=== PATIENT | female | born 1985 | race Asian ===

== ENCOUNTER 2024-01-03 19:42 | Emergency (ER) | payer MEDICAID, SELFPAY ==
[2024-01-03 20:15] VITALS: BP 118/76; PULSE 96; RESP 18; TEMP 36.9; O2SAT 100; BMI 31.2
--- NOTE | 2024-01-03 20:19 | ED.GENADULT ---
HPI - General Adult General Chief complaint: Upper Respiratory Symptoms Stated complaint: cough Time Seen by Provider: 01/04/24 00:54 Source: patient Limitations: no limitations History of Present Illness ED Provider: Solange krueger PA-C HPI narrative: 38-year-old female with a history of asthma presents with viral syndrome x2 days. Associated sorethroat, nasal congestion, dry spasm like cough with wheezing at times. Denies fevers. Denies productive cough, shortness of breath or chest pain. Patient child the sick with the same symptoms. Related Data Previous Rx's ?Medication ?Instructions ?Recorded albuterol sulfate 90 mcg/actuation 2 puff inhalation Q4-6H PRN 01/04/24 aerosol inhaler shortness of breath or wheezing 7 days #6.7 grams prednisone 20 mg tablet 40 mg (2 x 20 mg) PO DAILY #8 tabs 01/04/24 Allergies Allergy/AdvReac Type Severity Reaction Status Date / Time No Known Allergies Allergy Verified 01/03/24 20:16 Review of Systems Review of Systems: Yes all other systems are reviewed and are negative Constitutional: Constitutional: Denies fever(s) ENT: Reports nasal congestion, Reports nasal discharge and Reports sore throat Cardiovascular: Cardiovascular: Denies chest pain and Denies dyspnea Respiratory: Respiratory: Reports cough, Denies dyspnea and Reports wheezing Allergic/Immunologic: Allergic/Immunologic: Reports wheezing PMFSH Past Medical History Attestation statement: The following information was validated with the patient. Social History Social History Alcohol intake: never Smoked in Last 30 Days: No Use of substances other than those prescribed or required for medical reasons: No Advance Directives: No Advance Directives Information Provided: Yes Patient : No Physical Exam ED Vital Signs: Vital Signs - 24 hr 01/03/24 20:15 01/04/24 00:11 01/04/24 02:06 Temperature 98.4 F 98.4 F 98.4 F Pulse Rate 96 104 H 104 H Respiratory Rate 18 18 18 Blood Pressure 118/76 113/80 113/80 Pulse Oximetry 100 97 97 Oxygen Delivery Method Room Air Room Air Room Air BMI result Body Mass Index 31.2 Const Other: Alert well in appearance Orientation/consciousness: patient oriented x3 Resp Other: Nonlabored respirations, lungs are clear to auscultation, active bronchospasm cough Cardio Other: Normal peripheral perfusion Skin Other: Warm dry no rash Neuro General: patient oriented x3, no focal motor deficits and CN's II-XI intact bilaterally Psych Other: Calm cooperative Course Course Course Narrative: RME: [employer] by COLE[employer]. [age] year female presents to ED for URI symptoms cough x3 days. Daughter has similar symptoms. Patient denies any chest pain or shortness of breath, strep SARs ordered. Medical Decision Making Medical Decision Making [facility] Narrative: 38-year-old female with a history of asthma presents with viral syndrome x2 days. Associated sorethroat, nasal congestion, dry spasm like cough with wheezing at times. Denies fevers. Denies productive cough, shortness of breath or chest pain. Patient child the sick with the same symptoms. Problem: Asthma History: Per patient I have considered the following differential diagnoses: Asthma exacerbation, viral syndrome, pneumonia, bronchitis Plan: Patient was screened for viral illness and strep out in triage, it was negative. The patient has a mild asthma exacerbation in the setting of viral syndrome, we will send with an inhaler and a steroid taper. I do not feel she needs to stay for a chest x-ray, she does not have a productive cough, she is afebrile, her lungs are clear, pneumonia less likely. I have independently reviewed the following tests: Labs: Flu, RSV and COVID swab negative, strep swab negative Lab Data Labs: Lab Results 01/03/24 01/03/24 Range/Units 20:22 21:45 Influenza Type A (PCR) NEGATIVE (Negative) Influenza Type B (PCR) NEGATIVE (Negative) RSV RNA Qual (PCR) NEGATIVE (Negative) SARS-CoV-2 RNA (RT-PCR) NEGATIVE (Negative) S. pyogenes GrpA FANTA Negative (Negative) Discharge Plan Discharge Clinical Impression: Acute viral syndrome, Asthma exacerbation Patient Disposition: Home, Self-Care Instructions: Viral Syndrome (ED) Additional Instructions: You were screened for RSV, influenza and COVID, the viral panel was negative. They also tested you for strep throat, that was negative as well. You have a virus causing your mild asthma exacerbation. See home care instructions. Use your inhaler as needed for bronchospasms type cough and wheezing. Use the steroid taper as directed, take this medication in the morning. Follow up with your doctor as needed. Prescriptions: New albuterol sulfate 90 mcg/actuation HFA aerosol inhaler 2 puff inhalation Q4-6H PRN (Reason: shortness of breath or wheezing) 7 Days Qty: 6.7 0RF prednisone 20 mg tablet 40 mg PO DAILY Qty: 8 0RF Interventions: ED Discharge Assessment Last Done: 01/04/24 02:06 Discharge Date/Time: 01/04/24 02:06 Print Language: Thai
[2024-01-03 20:36] LABS: IDNOW Serial# 6674DD1D; Strep A Nucleic Acid Negative (Negative)
[2024-01-03 22:25] LABS: Influenza A PCR NEGATIVE (Negative); Influenza B PCR NEGATIVE (Negative); Resp Syncy Virus RNA Qual PCR NEGATIVE (Negative); SARS COV2 PCR INHOUSE NEGATIVE (Negative)
[2024-01-04 00:11] VITALS: BP 113/80; PULSE 104; RESP 18; TEMP 36.9; O2SAT 97
[2024-01-04 02:06] VITALS: BP 113/80; PULSE 104; RESP 18; TEMP 36.9; O2SAT 97
== END 2024-01-04 02:06 | disposition home or self-care (01) ==
PROVIDERS: Physician Assistant; Emergency Provider Emergency Medicine
DX: B34.9 Viral infection, unspecified (principal); J45.901 Unspecified asthma with (acute) exacerbation; R05.9 Cough, unspecified; J02.9 Acute pharyngitis, unspecified; Z03.818 Encounter for observation for suspected exposure to other biological agents ruled out
CPT/HCPCS: 0241U; 87651; 99283; 99284

== ENCOUNTER → 2024-02-04 08:12 | Outpatient (BNV) | payer MEDICAID, SELFPAY | PROVIDERS: Emergency Provider Emergency Medicine; Visit Provider Internal Medicine Cardiovascular Disease | DX: R94.31 Abnormal electrocardiogram [ECG] [EKG] (principal) | CPT/HCPCS: 93010 ==

== ENCOUNTER 2024-02-04 08:13 | Emergency (ER) | payer MEDICAID, SELFPAY ==
--- NOTE | 2024-02-04 | ECG_ITS ---
Test Reason : CP Blood Pressure : / mmHG Vent. Rate : 094 BPM Atrial Rate : 094 BPM P-R Int : 128 ms QRS Dur : 076 ms QT Int : 324 ms P-R-T Axes : 044 022 015 degrees QTc Int : 405 ms Normal sinus rhythm Nonspecific T wave abnormality Abnormal ECG No previous ECGs available Referred By: Generic ED Physician Electronically Signed By:DOE GONZALEZ MD
--- NOTE | ~2024-02-04 | XR_ITS ---
EXAMINATION: XR CHEST CLINICAL INFORMATION: Chest pain COMPARISON: None available. TECHNIQUE: 2 views of the chest were obtained. FINDINGS: No significant abnormality is noted involving the heart, lungs, mediastinum, bony thorax or soft tissues. XR/XR chest 2V IMPRESSION: Unremarkable examination. Electronically signed by: Rylee Roberts MD 02/04/2024 09:00 AM [facility]
[2024-02-04 08:17] VITALS: BP 132/78; PULSE 98; RESP 22; TEMP 36.9; O2SAT 100; BMI 30.5
--- NOTE | 2024-02-04 08:33 | ED_ITS ---
HPI - Chest Pain General Chief Complaint: Chest Pain Stated Complaint: cp-vomiting Time Seen by Provider: 02/04/24 08:27 Source: patient, RN notes reviewed and old records reviewed Mode of arrival: ambulatory History of Present Illness ED Provider: Jessica Villanueva PA-C HPI narrative: 38-year-old female with a past medical history of asthma presenting to the ED complaining of substernal chest pressure/heaviness beginning last night with associated nausea and emesis x3. Reports pain worsened this morning. Took Pepcid with some relief last night. Denies fever, chills, diarrhea/constipation, SOB, hematemesis, dysuria/hematuria. Related Data Previous Rx's ?Medication ?Instructions ?Recorded albuterol sulfate 90 mcg/actuation 2 puff inhalation Q4-6H PRN 01/04/24 aerosol inhaler shortness of breath or wheezing 7 days #6.7 grams prednisone 20 mg tablet 40 mg (2 x 20 mg) PO DAILY #8 tabs 01/04/24 aluminum-mag hydroxide-simethicone 5 ml PO 5XD PRN dyspepsia #30 mL 02/04/24 200 mg-200 mg-20 mg/5 mL oral susp (Maalox Advanced) famotidine 20 mg tablet (Pepcid) 20 mg PO DAILY #14 tabs 02/04/24 Allergies Allergy/AdvReac Type Severity Reaction Status Date / Time No Known Allergies Allergy Verified 02/04/24 08:18 Review of Systems 2 Review of Systems: Yes all other systems are reviewed and are negative Constitutional: Constitutional: Reports as per [facility] Past Medical History Attestation statement: The following information was validated with the patient. Source: old records reviewed Social History Social History Alcohol intake: never Advance Directives: No Advance Directives Information Provided: No Physical Exam 2 Vital Signs: Vital Signs: Last Vital Signs Temp 97 F 02/04/24 13:52 Pulse 76 02/04/24 13:52 Resp 16 02/04/24 13:52 BP 113/67 02/04/24 13:52 Pulse Ox 98 02/04/24 13:52 O2 Del Method Room Air 02/04/24 13:52 BMI result Body Mass Index 30.5 Const: General: cooperative, healthy appearing and no acute distress O rientation/consciousness: patient oriented x3 Limitations: no limitations HEENT: Head: Yes normal to inspection and Yes atraumatic Ears: hearing grossly normal bilaterally General nose exam: Normal external nose present Face and sinus: Yes normal facial exam Eyes: General: appearance normal, both eyes and all related structures EOM: EOMs intact bilaterally Neck: Neck: Yes normal visual inspection and Yes no meningeal signs Chest: Chest palpation & inspection: normal inspection of the chest, no crepitus and no tenderness Resp: Effort & Inspection: normal respiratory effort and no respiratory distress Auscultation: clear to auscultation bilaterally, no crackles and no wheezes Cardio: Rate: regular rate Heart sounds: S1 normal heart sound present and S2 normal heart sound present GI: Inspection: Yes normal to inspection Palpation (GI): Soft to palpation, nontender, no guarding and not rigid : General: Yes no CVA tenderness Back/Spine/Pelvis: Back: no CVA tenderness Skin: Rashes: no rashes Wounds: no wounds Neuro: General: patient oriented x3, tone normal and no meningeal signs C ranial nerves: Yes CN's II-XII intact bilaterally Gait exam (Neuro): Normal gait present Extrem: General: Yes normal to inspection and Yes no pedal edema Course Course Course Narrative: -1242-leukocytosis of 13.5. Initial troponin negative > will obtain 3 hour repeat. Labs otherwise reassuring -viral studies negative XR chest 2V IMPRESSION: Unremarkable examination. > on re-evaluation patient reports mild symptomatic improvement. Does report continued chest discomfort. We will give IV Toradol and re-evaluate -repeat troponin without delta, [place] unlikely > on repeat eval patient reports symptomatic improvement. Tolerating p.o. Results discussed with patient including worrisome signs and symptoms and strict return precautions, and when to return to the emergency department. They verbalized understanding and feel safe for discharge at this time. Medications Administered Discontinued Medications Generic Name Dose Route Start Last Admin Trade Name Freq PRN Reason Stop Dose Admin Al Hydroxide/Mg Hydroxide 30 ml 02/04/24 08:32 02/04/24 09:32 Magnesium Hydrox/Alum Hydrox 30 Ml Oral.Susp PO 02/04/24 08:33 30 ml ONCE ONE Administration Famotidine 20 mg 02/04/24 08:32 02/04/24 09:31 Famotidine/Pf 20 Mg/2 Ml Vial IVPUSH 02/04/24 08:33 20 mg ONCE ONE Administration Ketorolac Tromethamine 15 mg 02/04/24 12:42 02/04/24 12:47 Ketorolac Tromethamine 15 Mg/Ml Vial IVPUSH 02/04/24 12:43 15 mg ONCE ONE Administration Medical Decision Making Medical Decision Making MDM Narrative: 38-year-old female with a past medical history of asthma presenting to the ED complaining of substernal chest pressure/heaviness beginning last night with associated nausea and emesis x3. On exam tachypneic, appears uncomfortable, lungs CTA, abdomen soft/nontender. Concern for GERD vs gastritis vs PUD vs ACS. Lower suspicion for PTX, pneumonia, CHF, DVT/PE. Unlikely cholecystitis/lithiasis, pancreatitis, or appendicitis/diverticulitis without tenderness Plan: EKG, labs, UA, CXR, viral studies, Pepcid/Maalox, re-evaluate Please refer to course for remaining clinical decision making, interpretation of labs/imaging results, and discussions with consultants and/or family members. Differential Diagnosis Differential Diagnoses: The differential diagnosis associated with the presentation includes As above Admission/Observation Consideration of admission/observation: Escalation of care including admission/observation considered Lab Data [facility] Lab Attestation statement: I reviewed the patient's lab results. 02/04/24 09:27 02/04/24 09:27 Labs: Lab Results 02/04/24 02/04/24 02/04/24 Range/Units 09:27 09:27 09:27 WBC 13.5 H (4.8-10.8) X10*3/uL RBC 4.30 (4.20-5.50) X10*6/uL Hgb 12.7 (12.0-16.0) g/dl Hct 36.7 L (37.0-47.0) % MCV 85.3 (80.0-98.0) fL MCH 29.5 (27.0-33.0) pg MCHC 34.6 (31.0-35.0) g/dl RDW 12.7 (11.0-16.0) % Plt Count 346 (160-400) X10*3/uL MPV 8.5 L (9.4-12.3) fL Immature Gran % (Auto) 0.3 (0.0-0.4) % Neut % (Auto) 88.2 H (45-73) % Lymph % (Auto) 8.6 L (20-40) % [place]arr[place] % (Auto) 2.7 (2-11) % Eos % (Auto) 0.0 (0-4) % Baso % (Auto) 0.2 (0-2) % Lymph # (Auto) 1.2 (1.2-4.9) X10*3/uL [place] # (Auto) 0.4 (0.1-1.2) X10*3/uL Eos # (Auto) 0.0 (0.0-0.4) X10*3/uL Baso # (Auto) 0.0 (0.0-0.2) X10*3/uL Abs Immat Gran (auto) 0.04 H (0.00-0.03) X10*3/uL Absolute Neuts (auto) 11.9 H (2.0-8.3) x10*3/uL Absolute Nucleated RBC 0.000 (0.0-0.012) X10*3/uL Nucleated RBC % (auto) 0.0 (0.0-0.2) /100WBC Sodium 139 (135-145) mmol/L Potassium 3.5 (3.3-5.1) mmol/L Chloride 104 (96-108) mmol/L Carbon Dioxide 24 (22-29) mmol/L Anion Gap 15 (12-20) BUN 11 (9-16) mg/dL Creatinine 0.67 (0.5-1.4) mg/dL Estim Creat Clear Calc 103.2 Estimated GFR > 60 Random Glucose 116 H (60-115) mg/dL Calcium 9.7 (8.4-10.2) mg/dL Magnesium 1.8 (1.6-2.6) mg/dL Total Bilirubin 0.6 0.6 (0.0-1.0) mg/dL Direct Bilirubin 0.2 (0.0-0.5) mg/dL AST 24 21 (5-31) U/L ALT 14 (0-31) U/L Alkaline Phosphatase (39-117) U/L Troponin I High Sens (<3.5-17.0) ng/L Total Protein (6.5-8.0) g/dL Albumin (3.5-5.0) g/dL Urine Color Urine Appearance Urine pH (5.0-9.0) Ur Specific [place] (1.005-1.025) Urine Protein (Neg-Trace) mg/dL Urine Glucose (UA) (Negative) mg/dL Urine Ketones (Negative) mg/dL Urine Blood (Negative) Urine Nitrite (Negative) Ur Leukocyte Esterase (Negative) Urine Test (NEGATIVE) Influenza Type A (PCR) (Negative) Influenza Type B (PCR) (Negative) RSV RNA Qual (PCR) (Negative) SARS-CoV-2 RNA (RT-PCR) (Negative) 02/04/24 02/04/24 02/04/24 Range/Units 09:27 09:27 09:27 WBC (4.8-10.8) X10*3/uL RBC (4.20-5.50) X10*6/uL Hgb (12.0-16.0) g/dl Hct (37.0-47.0) % MCV (80.0-98.0) fL MCH (27.0-33.0) pg MCHC (31.0-35.0) g/dl RDW (11.0-16.0) % Plt Count (160-400) X10*3/uL MPV (9.4-12.3) fL Immature Gran % (Auto) (0.0-0.4) % Neut % (Auto) (45-73) % Lymph % (Auto) (20-40) % Garrard % (Auto) (2-11) % Eos % (Auto) (0-4) % Baso % (Auto) (0-2) % Lymph # (Auto) (1.2-4.9) X10*3/uL [place]arr[place] # (Auto) (0.1-1.2) X10*3/uL Eos # (Auto) (0.0-0.4) X10*3/uL Baso # (Auto) (0.0-0.2) X10*3/uL Abs Immat Gran (auto) (0.00-0.03) X10*3/uL Absolute Neuts (auto) (2.0-8.3) x10*3/uL Absolute Nucleated RBC (0.0-0.012) X10*3/uL Nucleated RBC % (auto) (0.0-0.2) /100WBC Sodium (135-145) mmol/L Potassium (3.3-5.1) mmol/L Chloride (96-108) mmol/L Carbon Dioxide (22-29) mmol/L Anion Gap (12-20) BUN (9-16) mg/dL Creatinine (0.5-1.4) mg/dL Estim Creat Clear Calc Estimated GFR Random Glucose (60-115) mg/dL Calcium (8.4-10.2) mg/dL Magnesium (1.6-2.6) mg/dL Total Bilirubin (0.0-1.0) mg/dL Direct Bilirubin (0.0-0.5) mg/dL AST (5-31) U/L ALT 15 (0-31) U/L Alkaline Phosphatase 55 56 (39-117) U/L Troponin I High Sens < 2.7 (<3.5-17.0) ng/L Total Protein 7.8 7.8 (6.5-8.0) g/dL Albumin 4.5 (3.5-5.0) g/dL Urine Color Urine Appearance Urine pH (5.0-9.0) Ur Specific [place] (1.005-1.025) Urine Protein (Neg-Trace) mg/dL Urine Glucose (UA) (Negative) mg/dL Urine Ketones (Negative) mg/dL Urine Blood (Negative) Urine Nitrite (Negative) Ur Leukocyte Esterase (Negative) Urine Test (NEGATIVE) Influenza Type A (PCR) (Negative) Influenza Type B (PCR) (Negative) RSV RNA Qual (PCR) (Negative) SARS-CoV-2 RNA (RT-PCR) (Negative) 02/04/24 02/04/24 02/04/24 Range/Units 09:27 09:35 12:17 WBC (4.8-10.8) X10*3/uL RBC (4.20-5.50) X10*6/uL Hgb (12.0-16.0) g/dl Hct (37.0-47.0) % MCV (80.0-98.0) fL MCH (27.0-33.0) pg MCHC (31.0-35.0) g/dl RDW (11.0-16.0) % Plt Count (160-400) X10*3/uL MPV (9.4-12.3) fL Immature Gran % (Auto) (0.0-0.4) % Neut % (Auto) (45-73) % Lymph % (Auto) (20-40) % Garrard % (Auto) (2-11) % Eos % (Auto) (0-4) % Baso % (Auto) (0-2) % Lymph # (Auto) (1.2-4.9) X10*3/uL [place] # (Auto) (0.1-1.2) X10*3/uL Eos # (Auto) (0.0-0.4) X10*3/uL Baso # (Auto) (0.0-0.2) X10*3/uL Abs Immat Gran (auto) (0.00-0.03) X10*3/uL Absolute Neuts (auto) (2.0-8.3) x10*3/uL Absolute Nucleated RBC (0.0-0.012) X10*3/uL Nucleated RBC % (auto) (0.0-0.2) /100WBC Sodium (135-145) mmol/L Potassium (3.3-5.1) mmol/L Chloride (96-108) mmol/L Carbon Dioxide (22-29) mmol/L Anion Gap (12-20) BUN (9-16) mg/dL Creatinine (0.5-1.4) mg/dL Estim Creat Clear Calc Estimated GFR Random Glucose (60-115) mg/dL Calcium (8.4-10.2) mg/dL Magnesium (1.6-2.6) mg/dL Total Bilirubin (0.0-1.0) mg/dL Direct Bilirubin (0.0-0.5) mg/dL AST (5-31) U/L ALT (0-31) U/L Alkaline Phosphatase (39-117) U/L Troponin I High Sens < 2.7 (<3.5-17.0) ng/L Total Protein (6.5-8.0) g/dL Albumin 4.5 (3.5-5.0) g/dL Urine Color Urine Appearance Urine pH (5.0-9.0) Ur Specific [place] (1.005-1.025) Urine Protein (Neg-Trace) mg/dL Urine Glucose (UA) (Negative) mg/dL Urine Ketones (Negative) mg/dL Urine Blood (Negative) Urine Nitrite (Negative) Ur Leukocyte Esterase (Negative) Urine Test (NEGATIVE) Influenza Type A (PCR) NEGATIVE (Negative) Influenza Type B (PCR) NEGATIVE (Negative) RSV RNA Qual (PCR) NEGATIVE (Negative) SARS-CoV-2 RNA (RT-PCR) NEGATIVE (Negative) 02/04/24 Range/Units 13:39 WBC (4.8-10.8) X10*3/uL RBC (4.20-5.50) X10*6/uL Hgb (12.0-16.0) g/dl Hct (37.0-47.0) % MCV (80.0-98.0) fL MCH (27.0-33.0) pg MCHC (31.0-35.0) g/dl RDW (11.0-16.0) % Plt Count (160-400) X10*3/uL MPV (9.4-12.3) fL Immature Gran % (Auto) (0.0-0.4) % Neut % (Auto) (45-73) % Lymph % (Auto) (20-40) % [place] % (Auto) (2-11) % Eos % (Auto) (0-4) % Baso % (Auto) (0-2) % Lymph # (Auto) (1.2-4.9) X10*3/uL [place] # (Auto) (0.1-1.2) X10*3/uL Eos # (Auto) (0.0-0.4) X10*3/uL Baso # (Auto) (0.0-0.2) X10*3/uL Abs Immat Gran (auto) (0.00-0.03) X10*3/uL Absolute Neuts (auto) (2.0-8.3) x10*3/uL Absolute Nucleated RBC (0.0-0.012) X10*3/uL Nucleated RBC % (auto) (0.0-0.2) /100WBC Sodium (135-145) mmol/L Potassium (3.3-5.1) mmol/L Chloride (96-108) mmol/L Carbon Dioxide (22-29) mmol/L Anion Gap (12-20) BUN (9-16) mg/dL Creatinine (0.5-1.4) mg/dL Estim Creat Clear Calc Estimated GFR Random Glucose (60-115) mg/dL Calcium (8.4-10.2) mg/dL Magnesium (1.6-2.6) mg/dL Total Bilirubin (0.0-1.0) mg/dL Direct Bilirubin (0.0-0.5) mg/dL AST (5-31) U/L ALT (0-31) U/L Alkaline Phosphatase (39-117) U/L Troponin I High Sens (<3.5-17.0) ng/L Total Protein (6.5-8.0) g/dL Albumin (3.5-5.0) g/dL Urine Color Yellow Urine Appearance Clear Urine pH 8.5 (5.0-9.0) Ur Specific [place] 1.025 (1.005-1.025) Urine Protein Trace (Neg-Trace) mg/dL Urine Glucose (UA) Negative (Negative) mg/dL Urine Ketones Trace (Negative) mg/dL Urine Blood Negative (Negative) Urine Nitrite Negative (Negative) Ur Leukocyte Esterase Negative (Negative) Urine Test NEGATIVE (NEGATIVE) Influenza Type A (PCR) (Negative) Influenza Type B (PCR) (Negative) RSV RNA Qual (PCR) (Negative) SARS-CoV-2 RNA (RT-PCR) (Negative) Radiology Impression Discussion of test interpretation with radiology: I have reviewed the radiologist's reading. External Record Review External record reviewed: Inpatient record, Office record, Outpatient record, Prior outpatient labs, Prior outpatient radiology, Primary care record and Outside ED record Tests considered The following testing was considered but not selected: As above Prescription Management I considered prescription management with: Pain Medication Chronic Conditions Patient?s care impacted by: Other (asthma) Social Determinants Patient?s care significantly limited by Social Determinants of Health including: Other Social Determinant of Health Discharge Plan Discharge Clinical Impression: Atypical chest pain Patient Disposition: Home, Self-Care Instructions: Noncardiac Chest Pain (ED) Additional Instructions: Your blood work is reassuring Maalox and Pepcid will help with acid reduction/stomach discomfort Please follow-up with gastroenterology as well as Cardiology and your doctor If symptoms persist or worsen, you are unable to eat or drink have persistent chest pain or shortness of breath return to the ED Prescriptions: New famotidine [Pepcid] 20 mg tablet 20 mg PO DAILY Qty: 14 0RF alum-mag hydroxide-simeth [Maalox Advanced] 200-200-20 mg/5 mL suspension 5 ml PO 5XD PRN (Reason: dyspepsia) Qty: 30 0RF Rx Instructions: administer between meals and at bedtime No Action albuterol sulfate 90 mcg/actuation HFA aerosol inhaler 2 puff inhalation Q4-6H PRN (Reason: shortness of breath or wheezing) 7 Days Qty: 6.7 0RF prednisone 20 mg tablet 40 mg PO DAILY Qty: 8 0RF Referrals: [facility] [Provider Group] [facility] [Provider Group] Discharge Date/Time: 02/04/24 14:23 Print Language: Slovenian
[2024-02-04] MEDS: Famotidine/PF 20 MG/2 ML VIAL IVPUSH (09:31)
[2024-02-04] MEDS: Magnesium Hydrox/Alum Hydrox 30 ML ORAL.SUSP PO (09:32)
[2024-02-04 09:35] LABS: MANUAL DIFF FLAG NO
[2024-02-04 09:39] LABS: Basophils Percent Auto 0.2 % (0-2); Hematocrit 36.7 % (37.0-47.0); Hemoglobin 12.7 g/dl (12.0-16.0); Imm Gran Abs Auto 0.04 X10*3/uL (0.00-0.03); Imm Gran Pct Auto 0.3 % (0.0-0.4); Lymphocytes Absolute Auto 1.2 X10*3/uL (1.2-4.9); Lymphocytes Percent Auto 8.6 % (20-40); Mean Corpuscular HGB Conc 34.6 g/dl (31.0-35.0); Mean Corpuscular Hemoglobin 29.5 pg (27.0-33.0); Mean Corpuscular Volume 85.3 fL (80.0-98.0); Mean Platelet Volume 8.5 fL (9.4-12.3); Monocytes Absolute Auto 0.4 X10*3/uL (0.1-1.2); Monocytes Percent Auto 2.7 % (2-11); Neutrophils Absolute Auto 11.9 x10*3/uL (2.0-8.3); Neutrophils Percent Auto 88.2 % (45-73); Platelet Count 346 X10*3/uL (160-400); Red Cell Distribution Width 12.7 % (11.0-16.0); White Blood Count 13.5 X10*3/uL (4.8-10.8)
[2024-02-04 09:51] LABS: Alanine Aminotransferase 15 U/L (0-31); Albumin Level 4.5 g/dL (3.5-5.0); Alkaline Phosphatase 56 U/L (39-117); Aspartate Amino Transferase 21 U/L (5-31); Bilirubin Direct 0.2 mg/dL (0.0-0.5); Bilirubin Total 0.6 mg/dL (0.0-1.0); Magnesium 1.8 mg/dL (1.6-2.6); Total Protein 7.8 g/dL (6.5-8.0)
[2024-02-04 09:52] LABS: Alanine Aminotransferase 14 U/L (0-31); Albumin Level 4.5 g/dL (3.5-5.0); Alkaline Phosphatase 55 U/L (39-117); Anion Gap 15 (12-20); Aspartate Amino Transferase 24 U/L (5-31); Bilirubin Total 0.6 mg/dL (0.0-1.0); Blood Urea Nitrogen 11 mg/dL (9-16); Calcium 9.7 mg/dL (8.4-10.2); Carbon Dioxide 24 mmol/L (22-29); Chloride 104 mmol/L (96-108); Creatinine Clr Calc Pharmacy 103.2; Estimated Glomerular Filt Rate > 60; Glucose Random 116 mg/dL (60-115); Potassium 3.5 mmol/L (3.3-5.1); Sodium 139 mmol/L (135-145); Total Protein 7.8 g/dL (6.5-8.0)
[2024-02-04 10:01] LABS: Troponin-I High Sensitivity < 2.7 ng/L (<3.5-17.0)
[2024-02-04 10:42] LABS: Influenza A PCR NEGATIVE (Negative); Influenza B PCR NEGATIVE (Negative); Resp Syncy Virus RNA Qual PCR NEGATIVE (Negative); SARS COV2 PCR INHOUSE NEGATIVE (Negative)
--- NOTE | 2024-02-04 11:17 | PC.NURSE ---
patient states relief with medication
[2024-02-04 12:19] VITALS: BP 113/70; PULSE 79; RESP 16; TEMP 36.8; O2SAT 98
[2024-02-04 12:42] LABS: Troponin-I High Sensitivity < 2.7 ng/L (<3.5-17.0)
[2024-02-04] MEDS: Ketorolac Tromethamine 15 MG/ML VIAL IVPUSH (12:47)
--- NOTE | 2024-02-04 13:20 | PC.NURSE ---
patient tolerating po given crackers and water
[2024-02-04 13:49] LABS: Appearance Urine Clear; Color Urine Yellow; Glucose Urine UA Negative (Negative); Leukocyte Esterase Urine Negative (Negative); Nitrite Urine Negative (Negative); PH 8.5 (5.0-9.0); Specific Gravity - Urine 1.025 (1.005-1.025); Urine Blood Negative (Negative); Urine Ketones Trace mg/dL (Negative); Urine Protein Trace mg/dL (Neg-Trace)
[2024-02-04 13:50] LABS: UPreg QC Valid YES; Urine Pregnancy NEGATIVE (NEGATIVE)
[2024-02-04 13:52] VITALS: BP 113/67; PULSE 76; RESP 16; TEMP 36.1; O2SAT 98
== END 2024-02-04 14:23 | disposition home or self-care (01) ==
PROVIDERS: Physician Assistant; Emergency Provider Emergency Medicine
DX: R07.89 Other chest pain (principal); R11.2 Nausea with vomiting, unspecified; Z79.899 Other long term (current) drug therapy; Z03.818 Encounter for observation for suspected exposure to other biological agents ruled out
CPT/HCPCS: 0241U; 36415; 71046; 80053; 80076; 81003; 81025; 82248; 83735; 84484; 85025; 93005; 96374; 96375; 99284; J1885

== ENCOUNTER 2024-05-01 09:10 | Emergency (ER) | payer MEDICAID, SELFPAY ==
[2024-05-01 09:52] VITALS: BP 115/70; PULSE 75; RESP 16; TEMP 36.9; O2SAT 100; BMI 30.5
[2024-05-01 10:17] LABS: IDNOW Serial# 08D9AD1C; Strep A Nucleic Acid Negative (Negative)
[2024-05-01 10:46] LABS: Influenza A PCR POSITIVE (Negative); Influenza B PCR NEGATIVE (Negative); Resp Syncy Virus RNA Qual PCR NEGATIVE (Negative); SARS COV2 PCR INHOUSE NEGATIVE (Negative)
--- OUTSIDE RECORDS SUMMARY | 2024-05-01 10:51 | XMS_ITS | Clinical Summary ---
Author Organization [facility] Address [address] [place] [address] Care Team Providers Care Unattended Ground Sensor Specialist Name Role Phone Olya Hughes APRN Primary Care Provider [phone] Esther Hoover Unavailable [phone] Allergies Active Allergy Reactions Criticality Noted Date Comments Ibuprofen Unknown/Patient and Family Unable to Define Medium 10/12/2017 Racing heart Latex Hives High 09/05/2016 Medications Medication Sig Dispensed Refills Start Date End Date Status nortriptyline (PAMELOR) 25 MG capsule nightly. 03/05/2021 Active meclizine (ANTIVERT) 12.5 MG tablet 3 (three) times a day as needed. 03/05/2021 Active levothyroxine (SYNTHROID, LEVOTHROID) 50 MCG tablet daily on an empty stomach. 01/23/2021 Active ondansetron (ZOFRAN-ODT) 4 MG disintegrating tabletIndications:Grad e III hemorrhoids Take 1 tablet (4 mg total) by mouth 4 times daily (every 6 hours) as needed for nausea or vomiting. Place tablet on tongue to dissolve. 20 tablet 05/28/2021 Active albuterol (PROVENTIL HFA; VENTOLIN HFA) 108 (90 Base) MCG/ACT inhaler Inhale 2 puffs 4 times daily (every 6 hours) as needed. 10/23/2021 Active fluticasone (FloNASE) 50 mcg/spray nasal spray USE DIRECTED IN EACH NOSTRIL ONCE A DAY 30 DAY(S) 09/30/2021 Active loratadine (CLARITIN) 10 MG tablet Take 10 mg by mouth daily. 09/02/2021 Active SUMAtriptan (IMITREX) 100 MG tablet PLEASE SEE ATTACHED FOR DETAILED DIRECTIONS 10/02/2021 Active triamcinolone (KENALOG) 0.1 % cream APPLY TOPICALLY 2 TIMES PER DAY 14 DAYS 09/02/2021 Active Slynd 4 MG Tab Take 1 tablet by mouth daily. 11/23/2021 Active oxyCODONE-acetaminophe n (PERCOCET) 5-325 mg per tabletIndications:Skin tag of perianal region Take 1-2 tablets by mouth 4 times daily (every 6 hours) as needed for moderate pain or severe pain. Max Daily Amount: 8 tablets 20 tablet 12/03/2021 Active gabapentin (NEURONTIN) 300 MG capsuleIndications:Ski n tag of perianal region Take 1 capsule (300 mg total) by mouth 2 (two) times a day. 20 capsule 12/03/2021 Active Psyllium 95 % PowderIndications:Stat us post hemorrhoidectomy Take 2 Scoops by mouth daily. 368 g 1 01/04/2022 Active hydrocortisone (ANUSOL-HC) 2.5 % rectal creamIndications:Statu s post hemorrhoidectomy Insert into the rectum 3 (three) times a day as needed for hemorrhoids. 28 g 01/04/2022 Active docusate sodium (COLACE) 100 MG capsuleIndications:Ski n tag of perianal region TAKE 1 CAPSULE BY MOUTH TWICE A DAY 60 capsule 06/13/2022 Active Active Problems Problem Noted Date Diagnosed Date Change in bowel function 04/22/2021 Assessment & Plan (04/22/2021 12:02 PM EST): I was able to get a better sense of her bowel pattern today. I think we are dealing with a primary constipation issue. It seems that pretty frequently her stools are hard and difficult to pass. And other times they are looser. Notes 3 bowel movements per day but notes a sense of incomplete evacuation. I am can have her hold off on the stool cultures. I recommended she go for the blood work to take a look at her thyroid levels it to assess for celiac disease. I will have her increase Benefiber to twice a day. If no improvement after about a week or so I recommended MiraLAX every other day. If stools are too loose and watery she can just use this as needed. If still noting hard and difficult to pass stools with every other day she can increase to daily. We will follow-up with her in 6 weeks for repeat evaluation. Other hemorrhoids 03/16/2021 Assessment & Plan (06/03/2021 2:05 PM EST): She is patient is status post hemorrhoidectomy and banding. Of course, she is still uncomfortable, noting blood, and discomfort with a bowel movement. I recommended she continue with Colace and add on MiraLAX to keep her stools looser. Recommended avoiding excessive wiping. She does have a device to squeeze water and cleanse the area. We discussed that it is going to take a couple weeks for her to recover from this. I do not want make any changes as she is still in her acute recovery. We will see how her bowels are after a few weeks. Hopefully, she is able to go for blood work. It does not seem like she tolerated the Benefiber very well. At her next follow-up we can discuss potential for anorectal manometry and possible physical therapy. But again, we will wait till she is feeling a little bit better after her procedure. Assessment & Plan (04/22/2021 12:03 PM EST): Discussed conservative treatment plan which includes fiber, warm sits baths and using a wet wipe as well as avoiding constipation. She has an appointment with colorectal surgery on May 04 of this year. I also instructed her to reach out to me in 2 weeks let me know how she is doing. But a follow-up with her in 6 weeks. Assessment & Plan (03/16/2021 10:14 AM EST): Patient has 2 skin tags that were noted on exam as well as a prolapsing internal hemorrhoid. I recommended sitz bath's, and daily fiber supplementation. I am also going to send her to general surgery for a consultation as she would like these removed. I will follow up with her in a month and I will touch base once I receive her blood work and stool cultures. Umbilical hernia without obstruction or gangrene 01/06/2021 Difficulty walking 08/03/2020 Lumbar pain 08/03/2020 Right hip pain 08/03/2020 depression 07/16/2020 Hypothyroid 07/13/2018 Intramural leiomyoma of uterus 06/13/2016 Resolved Problems Problem Noted Date Diagnosed Date Resolved Date Diarrhea 03/16/2021 04/22/2021 Assessment & Plan (03/16/2021 10:00 AM EST): Patient notes months of looser stools. Mostly she has been going daily but at times will have periods of time where she will go for a few days. But stools mostly are on the looser side noting a 6 on the Orange stool chart. No alarm features. I recommended Benefiber daily in addition to celiac serology, thyroid level, and stool cultures. I also recommended a dairy free diet for 2 weeks and discussed how to reintroduce if she notes an improvement with eliminating dairy from her diet. I will touch base with the patient once I receive the results. Family History Medical History Relation Name Comments Cervical cancer Maternal Grandmother Relation Name Status Comments Maternal Grandmother Social History Tobacco Use Types Packs/Day Years Used Date Smoking Tobacco: Former Cigarettes Q uit: 2000 Smokeless Tobacco: Former Quit: 2000 Tobacco Cessation:Counseling Given: Not Answered Alcohol Use Standard Drinks/Week Comments Not Currently 0 (1 standard drink = 0.6 oz pur e alcohol) OCCASIONAL Sex and Gender Information Value Date Recorded Sex Assigned at Not on file Gender Identity Not on file Sexual Orientation Not on file Last Filed Vital Signs Vital Sign Reading Time Taken Comments Blood Pressure 121/78 02/01/2022 3:23 PM EST Pulse 97 02/01/2022 3:23 PM EST Temperature 36.4 ??C (97.5 ??F) 12/16/2021 10:32 AM E DT Respiratory Rate 16 02/01/2022 3:23 PM EST Oxygen Saturation 100% 02/01/2022 3:23 PM EST Inhaled Oxygen Concentration - - Weight 72.1 kg (159 lb) 01/04/2022 1:40 PM EDT Height 162.6 cm (5' 4 ) 01/04/2022 1:40 PM EDT Body Mass Index 27.29 01/04/2022 1:40 PM EDT Plan of Treatment Health Maintenance Due Date Last Done Comments Hepatitis C Virus Screening 1984 HIV Screening 1997 DTaP/Tdap/Td Vaccines (1 - Tdap) 08/11/2003 Hepatitis B Vaccines (1 of 3 - 19+ 3-dose series) 08/11/2003 Pap Smear (Ages 21-65) 2005 Influenza Vaccine 10/26/2023 12/17/2020, 12/04/2019, 12/21/2018 COVID-19 Vaccine (2023- season) 2023 08/07/2020, 07/17/2020 Chronic Controlled Substance User PDMP Review Discontinued 05/05/2021 HPV Vaccines Aged Out No longer eligi ble based on patient's age to complete this topic Pneumococcal Vaccine: Pediatric (0-5 Years) and At-Risk Patients (6 to 49 Years) Aged Out No longer eligible b ased on patient's age to complete this topic Advance Directives * Full Code (Latest Code Status on File) Date Activated Date Inactivated Comments 12/03/2021 2:19 PM * Full Code Date Activated Date Inactivated Comments 05/28/2021 1:11 PM 12/03/2021 2:17 PM Care Teams Unattended Ground Sensor Specialist Relationship Specialty Start Date End Date Olya Hughes APRN [address] [place] [address] PCP - General 03/10/21 Esther Hoover PA [address] [place], [place] [id number] Physician [facility] 03/10/21
--- OUTSIDE RECORDS SUMMARY | 2024-05-01 10:51 | XMS_ITS | Clinical Summary ---
Author Organization [employer] Address [address] [facility] [address] [place] [address] Care Team Providers Care High School Music Director Name Role Phone Unavailable Primary Care Provider Unavailabl e Encounters Date Type Department Care Team Description 03/18/2024 Telephone [facility] [address] [place] [id number] Ben Avalos MD new patient appt. from Last 3 Months Social History Tobacco Use Types Packs/Day Years Used Date Smoking Tobacco: Never Assessed Comments Unknown Sex and Gender Information Value Date Recorded Sex Assigned at Not on file Legal Sex Female 10:42 AM EDT Gender Identity Not on file Sexual Orientation Not on file Plan of Treatment Upcoming Encounters Date Type Department Care Team (Late st Contact Info) Description 05/22/2024 11:00 AM EST Office Visit [facility] [address] [place] [address] [phone] Julia Prado MD [address] [place] [phone] Health Maintenance Due Date Last Done Comments Depression Screening 1984 HIV Screening 1984 SDOH Screening 1984 Alcohol/Substance Use Screening 1996 Tobacco Screening 1996 Family Planning (PISQ) 08/11/1999 Hepatitis C Screening 2002 DTaP/Tdap/Td Vaccines (1 - Tdap) 08/11/2003 Hepatitis B Vaccines (1 of 3 - 19+ 3-dose series) 08/11/2003 Pap Smear 2005 Cervical Cancer Screening 2014 HPV/Cotest 2014 COVID-19 Vaccine (2023-2 5 season) 2023 Influenza Vaccine (#1) 2023 Zoster Vaccines (1 of 2) 2034 RSV Patients and Pa tients Aged 60 years or older (1 - 1-dose 75+ series) 08/11/2059 HIB Vaccines Aged Out No longer eligi ble based on patient's age to complete this topic HPV Vaccines Aged Out No longer eligi ble based on patient's age to complete this topic Hepatitis A Vaccines Aged Out No long er eligible based on patient's age to complete this topic IPV Vaccines Aged Out No longer eligi ble based on patient's age to complete this topic Meningococcal Vaccine Aged Out No valeriy mick eligible based on patient's age to complete this topic Pneumococcal Vaccine: Pediat rics (0 to 5 Years) and At-Risk Patients (6 to 49) Years) Aged Out No longer eligible b ased on patient's age to complete this topic RSV under 20 months Aged Out No longe r eligible based on patient's age to complete this topic Rotavirus Vaccines Aged Out No longer eligible based on patient's age to complete this topic Insurance [facility] C3
--- NOTE | 2024-05-01 12:04 | ED.URI ---
HPI - URI/Sore Throat General Chief Complaint: Upper Respiratory Symptoms Stated Complaint: cold symptoms Time Seen by Provider: 05/01/24 11:42 Source: patient Mode of arrival: ambulatory Limitations: no limitations History of Present Illness ED Provider: JAROCHO MORRIS PA-C HPI Narrative: 38-year-old female with pmhx significant for asthma presents to the ED today for evaluation of dry cough, headache, and sore throat on coughing x3 days. No known sick contacts. Admits to hx of asthma - does not feel SOB or wheezy. She did not recieve this seasons flu vaccine. Javier fever, chills, chest pain, N/V/D, abd pain. Related Data Previous Rx's ?Medication ?Instructions ?Recorded albuterol sulfate 90 mcg/actuation 2 puff inhalation Q4-6H PRN 01/04/24 aerosol inhaler shortness of breath or wheezing 7 days #6.7 grams prednisone 20 mg tablet 40 mg (2 x 20 mg) PO DAILY #8 tabs 01/04/24 aluminum-mag hydroxide-simethicone 5 ml PO 5XD PRN dyspepsia #30 mL 02/04/24 200 mg-200 mg-20 mg/5 mL oral susp (Maalox Advanced) famotidine 20 mg tablet (Pepcid) 20 mg PO DAILY #14 tabs 02/04/24 benzocaine 15 mg-menthol 2.6 mg 1 marly mucous membrane Q2-4H PRN 05/01/24 lozenges (Cepacol Sore Throat sore throat #16 ea (benzocaine-menthol)) benzonatate 100 mg capsule 100 mg PO BID PRN cough #20 caps 05/01/24 oseltamivir 75 mg capsule (Tamiflu) 75 mg PO BID 5 days #10 caps 05/01/24 prednisone 20 mg tablet 40 mg (2 x 20 mg) PO DAILY 5 days 05/01/24 #10 tabs Allergies Allergy/AdvReac Type Severity Reaction Status Date / Time No Known Allergies Allergy Verified 05/01/24 09:54 Review of Systems Review of Systems: Yes all other systems are reviewed and are negative PMFSH Past Medical History Attestation statement: The following information was validated with the patient. Source: old records reviewed and nursing notes reviewed Social History Social History Alcohol intake: never Advance Directives: No Advance Directives Information Provided: Yes Physical Exam Vital Signs: Vital Signs: Last Vital Signs Temp 98.5 F 05/01/24 09:52 Pulse 75 05/01/24 09:52 Resp 16 05/01/24 09:52 BP 115/70 05/01/24 09:52 Pulse Ox 100 05/01/24 09:52 O2 Del Method Room Air 05/01/24 09:52 BMI result Body Mass Index 30.5 Vital signs stable, afebrile. Not hypoxic. General: Well appearing, in no acute distress. Skin: Warm, dry, intact. No rashes or lesions. Head: Normocephalic, atraumatic. EENT: Hearing is intact b/l. Conjunctiva clear. PERRLA. EOM intact. Moist mucous membranes.? Posterior oropharynx without erythema or edema. No tonsillar exudates or peritonsillar masses. Uvula midline. Controlling secretions and speaking complete sentences. Neck: Supple without LAD Cardiac: Chest wall symmetric. RRR Lungs: Normal respiratory effort without accessory muscle use. no tripoding. Bronchospastic cough. CTA bilaterally. No rales, rhonchi, or wheezes.? Abdomen: Soft, non-tender, non-distended. No rebound tenderness or guarding. Positive BS x4. Ext: Upper and lower extremities atraumatic, without tenderness, deformity, swelling or erythema Neuro: AOx3. Normal speech. Ambulating with steady gait. Course Course Course Narrative: Patient tested positive for influenza A. Her exam is not concerning for asthma exacerbation. After discussion, patient would like to begin Tamiflu. Sent to pharmacy. Will also send prednisone, Tessalon and Cepacol throat lozenges to pharmacy for symptoms. Patient has remained stable throughout ED visit today. Discussed worrisome signs and symptoms and when to return to the ED. All questions answered at this time. Patient is agreeable with disposition and stable for discharge. Medical Decision Making Medical Decision Making MDM Narrative: 38-year-old female with pmhx significant for asthma presents to the ED today for evaluation of dry cough, headache, and sore throat on coughing x3 days. Vital signs stable, afebrile, not hypoxic. She is nontoxic appearing in no acute distress. No noted respiratory distress or tripoding. There is bronchospastic cough. Lungs are CTA bilaterally without rhonchi or wheezes. Differential diagnosis includes viral syndrome. lower suspicion for bronchitis, pneumonia, strep, [employer], retropharyngeal abscess, epiglottitis, asthma exacerbation. Plan for viral swabs and re-evaluation. Differential Diagnosis Differential Diagnoses: The differential diagnosis associated with the presentation includes as above. Admission/Observation not indicated. Lab Data MDM Lab Attestation statement: I reviewed the patient's lab results. as above Labs: Lab Results 05/01/24 Range/Units 09:59 Influenza Type A (PCR) POSITIVE A (Negative) Influenza Type B (PCR) NEGATIVE (Negative) RSV RNA Qual (PCR) NEGATIVE (Negative) SARS-CoV-2 RNA (RT-PCR) NEGATIVE (Negative) S. pyogenes GrpA FANTA Negative (Negative) External Record Review External record reviewed: Inpatient record Prescription Management I considered prescription management with: Other (Prednisone, Tamiflu, Tessalon) Chronic Conditions Patient?s care impacted by: Other (asthma) Social Determinants Patient?s care significantly limited by Social Determinants of Health including: Other Social Determinant of Health Critical Care Time Critical Care Time Critical Care Time: No Discharge Plan Discharge Clinical Impression: Influenza A Patient Disposition: Home, Self-Care Instructions: Influenza (ED) Additional Instructions: Today you tested positive for influenza A. Take Ibuprofen or Tylenol as needed for fevers or body aches.? Practice social distancing and good hand hygiene. Drink plenty of fluids. Follow-up with your primary care provider this week. Return to the emergency department with new or worsening symptoms. In case of emergency call 911 You can purchase a pulse oximeter from your local pharmacy or grocery store, and monitor your oxygen saturation if it goes below 94% you should return to the emergency department for further evaluation. Prescriptions: New prednisone 20 mg tablet 40 mg PO DAILY 5 Days Qty: 10 0RF oseltamivir [Tamiflu] 75 mg capsule 75 mg PO BID 5 Days Qty: 10 0RF benzonatate 100 mg capsule 100 mg PO BID PRN (Reason: cough) Qty: 20 0RF Cepacol Sore Throat (alejandrina-men) 15-2.6 mg lozenge 1 marly mucous membrane Q2-4H PRN (Reason: sore throat) Qty: 16 0RF No Action famotidine [Pepcid] 20 mg tablet 20 mg PO DAILY Qty: 14 0RF alum-mag hydroxide-simeth [Maalox Advanced] 200-200-20 mg/5 mL suspension 5 ml PO 5XD PRN (Reason: dyspepsia) Qty: 30 0RF Rx Instructions: administer between meals and at bedtime albuterol sulfate 90 mcg/actuation HFA aerosol inhaler 2 puff inhalation Q4-6H PRN (Reason: shortness of breath or wheezing) 7 Days Qty: 6.7 0RF prednisone 20 mg tablet 40 mg PO DAILY Qty: 8 0RF Stand Alone Forms: Work/School Release Discharge Date/Time: 05/01/24 12:07 Print Language: Liberian
[2024-05-01 12:05] VITALS: BP 120/62; PULSE 72; RESP 20; TEMP 36.3; O2SAT 98
[2024-05-01 12:06] VITALS: BP 120/62; PULSE 72; RESP 20; TEMP 36.3; O2SAT 98
== END 2024-05-01 12:07 | disposition home or self-care (01) ==
PROVIDERS: Emergency Provider Emergency Medicine
DX: J10.1 Influenza due to other identified influenza virus with other respiratory manifestations (principal); R05.9 Cough, unspecified; R51.9 Headache, unspecified
CPT/HCPCS: 0241U; 87651; 99282; 99283